=== PATIENT | male | born 1980 | race Two or more races ===

== ENCOUNTER 2016-09-16 10:56 | Emergency (ER) | payer OTHER ==
[~2016-09-16] VITALS: Ht 167.6 cm; Wt 89.0 kg
[2016-09-16 11:04] VITALS: BP 133/98; PULSE 49; RESP 16; TEMP 98.1; O2SAT 98
[2016-09-16] MEDS ORDERED: SODIUM CHLOR 0.9% 1000 ML INJ 1,000 ML IV SCH (11:33)
[2016-09-16] MEDS ORDERED: RANI150T PO (11:41)
[2016-09-16] MEDS ORDERED: ONDANSETRON HCL 4 MG/2 ML VIAL IVP ONE (11:45)
[2016-09-16] MEDS ORDERED: SODIUM CHLORIDE 0.9% FLUSH 10 ML FLUSH IV FLUSH PRN (11:45)
[2016-09-16] MEDS ORDERED: MORPHINE SULFATE 4 MG/ML INJ IV PUSH ONE (11:45)
[2016-09-16 11:55] LABS: AUTOMATED NEUTROPHIL # 9.4 TH/MM3 (1.8-7.7); BASOPHIL # 0.1 TH/MM3 (0-0.2); BASOPHIL % 0.5 % (0.0-2.0); EOSINOPHIL % 0.2 % (0.0-4.0); HEMATOCRIT 46.1 % (39.0-51.0); HEMO FLAGS DIFF FINAL; LYMPH % 10.1 % (9.0-44.0); LYMPHOCYTE # 1.1 TH/MM3 (1.0-4.8); MEAN CELL VOLUME 82.6 FL (80.0-100.0); MEAN CORPUSCULAR HGB CONC 32.7 % (32.0-36.0); MONO % 5.3 % (0.0-8.0); NEUT % 83.9 % (16.0-70.0); PLATELET COUNT 139 TH/MM3 (150-450); RED BLOOD COUNT 5.58 MIL/MM3 (4.50-5.90); WHITE BLOOD COUNT 11.2 TH/MM3 (4.0-11.0)
[2016-09-16 12:00] VITALS: RESP 16; O2SAT 98
[2016-09-16 12:04] LABS: CHLORIDE 105 MEQ/L (98-107); POTASSIUM 4.1 MEQ/L (3.5-5.1); SODIUM (NA) 141 MEQ/L (136-145)
--- NOTE | 2016-09-16 12:07 | PD ---
HPI Chief Complaint: Abdominal Pain Time Seen by Provider: 11:29 Travel History International Travel<30 days: No Contact w/Intl Traveler<30days: No Traveled to known affect area: No History of Present Illness HPI 35-year-old male presents with right lower quadrant abdominal pain, chills and nonbloody emesis over the past day. He states he went to an urgent care but after waiting too long he elected to come here before evaluation there. Quality is crampy. Severity is moderate. He denies migration the pain. He states that he has been having a sore throat over the past couple weeks so he is been trying [id number] Zantac and that helped with those symptoms but it did not help with two-day symptoms. He denies other concurrent complaints. PFSH Past Medical History Hx Anticoagulant Therapy: No Diabetes: No GERD: Yes Immunizations Current: Yes Influenza Vaccination: Yes Past Surgical History Surgical History: No Previous Surgery Social History Alcohol Use: Yes (RARE) Tobacco Use: Yes (1/2 PPD) Substance Use: No Allergies-Medications (Allergen,Severity, Reaction): Coded Allergies: No Known Allergies (Unverified , 09/16/16) Reported Meds & Prescriptions Reported Meds & Active Scripts Active Tramadol (Tramadol HCl) 50 Mg Tab 50 Mg PO Q8H PRN Diflucan (Fluconazole) 200 Mg Tab 200 Mg PO DAILY Reported Ranitidine (Ranitidine HCl) 150 Mg Tab 150 Mg PO BID Review of Systems Except as stated in HPI: all other systems reviewed are Neg Physical Exam Narrative GENERAL: Well-nourished, well-developed patient. SKIN: Warm and dry. HEAD: Normocephalic and atraumatic. EYES: No injection or drainage. ENT: No nasal drainage noted. NECK: Supple, trachea midline. CARDIOVASCULAR: Regular rate and rhythm RESPIRATORY: Breath sounds equal bilaterally. No accessory muscle use. GASTROINTESTINAL: Abdomen soft, ttp in rlq, nondistended. EXTREMITIES: No edema. NEUROLOGICAL: Awake and alert. Motor and sensory grossly within normal limits. Normal speech. Data Data Last Documented VS Vital Signs Date Time Temp Pulse Resp B/P Pulse Ox O2 Delivery O2 Flow Rate FiO2 09/16/16 12:00 16 98 Room Air 09/16/16 11:04 98.1 49 133/98 Orders Complete Blood Count With Diff (09/16/16 11:33) Comprehensive Metabolic Panel (09/16/16 11:33) Lipase (09/16/16 11:33) Urinalysis - C+S If Indicated (09/16/16 11:33) Ct Abd/Pel W Iv Contrast(Rout) (09/16/16 11:33) Iv Access Insert/Monitor (09/16/16 11:33) Ecg Monitoring (09/16/16 11:33) Oximetry (09/16/16 11:33) Morphine Inj (Morphine Inj) (09/16/16 11:45) Ondansetron Inj (Zofran Inj) (09/16/16 11:45) Sodium Chlor 0.9% 1000 Ml Inj (Ns 1000 M (09/16/16 11:33) Sodium Chloride 0.9% Flush (Ns Flush) (09/16/16 11:45) Urine Culture (09/16/16 11:55) Iohexol 350 Inj (Omnipaque 350 Inj) (09/16/16 12:34) Labs Laboratory Tests Test 09/16/16 09/16/16 11:45 11:55 White Blood Count 11.2 TH/MM3 Red Blood Count 5.58 MIL/MM3 Hemoglobin 15.1 GM/DL Hematocrit 46.1 % Mean Corpuscular Volume 82.6 FL Mean Corpuscular Hemoglobin 27.0 PG Mean Corpuscular Hemoglobin 32.7 % Concent Red Cell Distribution Width 12.0 % Platelet Count 139 TH/MM3 Mean Platelet Volume 9.3 FL Neutrophils (%) (Auto) 83.9 % Lymphocytes (%) (Auto) 10.1 % Monocytes (%) (Auto) 5.3 % Eosinophils (%) (Auto) 0.2 % Basophils (%) (Auto) 0.5 % Neutrophils # (Auto) 9.4 TH/MM3 Lymphocytes # (Auto) 1.1 TH/MM3 Monocytes # (Auto) 0.6 TH/MM3 Eosinophils # (Auto) 0.0 TH/MM3 Basophils # (Auto) 0.1 TH/MM3 CBC Comment DIFF FINAL Differential Comment Sodium Level 141 MEQ/L Potassium Level 4.1 MEQ/L Chloride Level 105 MEQ/L Carbon Dioxide Level 27.8 MEQ/L Anion Gap 8 MEQ/L Blood Urea Nitrogen 11 MG/DL Creatinine 1.10 MG/DL Estimat Glomerular Filtration 76 ML/MIN Rate Random Glucose 196 MG/DL Calcium Level 8.7 MG/DL Total Bilirubin 0.6 MG/DL Aspartate Amino Transf 44 U/L (AST/SGOT) Alanine Aminotransferase 100 U/L (ALT/SGPT) Alkaline Phosphatase 78 U/L Total Protein 7.9 GM/DL Albumin 4.2 GM/DL Lipase 272 U/L Urine Collection Type CLEAN CATCH Urine Color YELLOW Urine Turbidity CLEAR Urine pH 6.0 Urine Specific Rumsey 1.018 Urine Protein TRACE mg/dL Urine Glucose (UA) NEG mg/dL Urine Ketones NEG mg/dL Urine Occult Blood LARGE Urine Nitrite NEG Urine Bilirubin NEG Urine Leukocyte Esterase NEG Urine RBC INNUM /hpf Urine WBC 20-24 /hpf Urine Squamous Epithelial 0-5 /hpf Cells Urine Yeast (Budding) MANY Microscopic Urinalysis Comment CULTURE INDICATED Urine Collection Time 11:55 [facility] Medical Decision Making Medical Screen Exam Complete: Yes Emergency Medical Condition: Yes Medical Record Reviewed: Yes (past history confirmed) Interpretation(s) CBC & BMP Diagram 09/16/16 11:45 Last 24 hours Impressions Abdomen/Pelvis CT 09/16/16 1133 Signed Impressions: Service Date/Time: Friday, September 16, 2016 12:23 - CONCLUSION: 1. Acute obstructive uropathy is noted involving the right distal ureter several centimeters proximal to the right ureterovesical junction secondary to a 4 mm calcified calculus resulting in mild ureteropelvocaliectasis on the right. 2. Uncomplicated colonic diverticulosis. 3. Mild fatty infiltration of the liver. Ck Johnson MD ua with yeast Differential Diagnosis Appendicitis, gastroenteritis, stone Narrative Course Will check blood work, urinalysis, CT scan and dose with Zofran and morphine and reevaluate ed workup with glucose of 196, urine with yeast, CT with stone. We'll discuss with urology, patient wanting to leave Patient denies any new complaints and states that they are feeling better. Patient happy with care, all questions answered. Patient knows that follow up is incumbent on them and to return to the emergency room immediately if new or worsening symptoms develop. Patient given strict return precautions, vitals reviewed and are normal, agrees to further workup as an outpatient. Given interaction of Lortab and Percocet with Diflucan Will send home on tramadol, no emesis here Physician Communication Physician Communication dr ruff states to place on diflucan for 5 days and can follow outpatient Diagnosis Primary Impression: Kidney stone Additional Impressions: Elevated glucose Maribell cystitis Referrals: Primary Care Physician 2 days Urologist call for appointment this week Patient Instructions: General Instructions Additional Instructions: return as needed, limit sugar in diet Med/Other Pt SpecificInfo: Prescription(s) given Scripts Tramadol 50 Mg Tab50 Mg PO Q8H PRN (PAIN) #15 TAB Ref 0 Prov:Gemma Bolivar MD 09/16/16 Fluconazole (Diflucan)200 Mg Caf336 Mg PO DAILY #5 TAB Ref 0 Prov:Gemma Bolivar MD 09/16/16 Disposition: 01 DISCHARGE HOME Condition: Stable Gemma Bolivar MD Sep 16, 2016 12:07
[2016-09-16 12:08] LABS: ANION GAP 8 MEQ/L (5-15); BICARBONATE 27.8 MEQ/L (21.0-32.0); BLOOD UREA NITROGEN 11 MG/DL (7-18)
[2016-09-16 12:10] LABS: ALT (GPT) 100 U/L (12-78)
[2016-09-16 12:11] LABS: BLOOD, URINE LARGE (NEG); GLUCOSE,URINE NEG (NEG); KETONE, URINE NEG (NEG); NITRITE,URINE NEG (NEG)
[2016-09-16 12:11] LABS: AST (GOT) 44 U/L (15-37); GLOMERULAR FILTRATION RATE 76 ML/MIN (>89)
[2016-09-16 12:12] LABS: TOTAL BILIRUBIN ADULT 0.6 MG/DL (0.2-1.0)
[2016-09-16 12:14] LABS: ALKALINE PHOSPHATASE 78 U/L (45-117)
[2016-09-16 12:20] LABS: METHOD OF COLLECTION CLEAN CATCH; URINE COLOR YELLOW (YELLW/STRAW)
[2016-09-16 12:21] LABS: RBC, URINE INNUM /hpf (0-3); SQUAMOUS EPITHELIAL CELL URINE 0-5 /hpf (0-5)
[2016-09-16 12:22] LABS: COMMENT (UR) CULTURE INDICATED; CULTURE IF INDICATED CULTURE INDICATED
[2016-09-16] MEDS ORDERED: IOHEXOL 350 MG/ML 10 ML VIAL (for RAD DIAG) IV ONE (12:34)
[2016-09-16 13:00] VITALS: BP 133/64; PULSE 52; RESP 16; O2SAT 98
--- NOTE | 2016-09-16 13:01 | RADHPO ---
EXAM DATE/TIME: 09/16/2016 12:23 [facility] COMPARISON: No previous studies available for comparison. INDICATIONS : Non specific abdominal pain with nausea and vomiting. IV CONTRAST: 95 cc Omnipaque 350 (iohexol) IV ORAL CONTRAST: No oral contrast ingested. RADIATION DOSE: 14.44 CTDIvol (mGy) MEDICAL HISTORY : Gastroesophageal reflux disease. SURGICAL HISTORY : None. ENCOUNTER: Initial ACUITY: 1 day PAIN SCALE: 3/10 LOCATION: abdomen TECHNIQUE: Volumetric scanning of the abdomen and pelvis was performed. Using automated exposure control and ad justment of the mA and/or kV according to patient size, radiation dose was kept as low as reasonably achievable to obtain optimal diagnostic quality images. FINDINGS: LOWER LUNGS: The visualized lower lungs are clear. LIVER: Mild fatty infiltration of the liver is noted. There is no dilation of the biliary tree. No calcifie d gallstones. SPLEEN: Normal size without lesion. PANCREAS: Within normal limits. KIDNEYS: Acute obstructive uropathy is noted involving the right distal ureter several centimeters proximal to the right ureterovesical junction secondary to a 4 mm calcified calculus resulting in mild ureterope lvocaliectasis on the right. The left kidney is unremarkable. ADRENAL GLANDS: Within normal limits. VASCULAR: There is no aortic aneurysm. BOWEL/MESENTERY: Uncomplicated colonic diverticulosis is noted. ABDOMINAL WALL: Within normal limits. RETROPERITONEUM: There is no lymphadenopathy. BLADDER: No wall thickening or mass. REPRODUCTIVE: Within normal limits. INGUINAL: There is no lymphadenopathy or hernia. MUSCULOSKELETAL: Within normal limits for patient age. CONCLUSION: 1. Acute obstructive uropathy is noted involving the right distal ureter several centimeters proximal to the right ureterovesical junction secondary to a 4 mm calcified calculus resulting in mild ureter opelvocaliectasis on the right. 2. Uncomplicated colonic diverticulosis. 3. Mild fatty infiltration of the liver. Ck Johnson MD on September 16, 2016 at 12:53 Board Certified Radiologist. This report was verified electronically.
[2016-09-16] MEDS ORDERED: DIFL200T PO (13:19)
[2016-09-16] MEDS ORDERED: TRAM50TA PO (13:19)
== END 2016-09-16 13:44 | disposition home or self-care (01) ==
LOC: PHED 10:56
DX: N20.0 Calculus of kidney (principal); B37.41 Candidal cystitis and urethritis; R73.9 Hyperglycemia, unspecified
CPT/HCPCS: 74177; 80053; 81001; 83690; 85025; 87086; 96361; 96374; 96375; 99285; J2270; J2405; J7030; Q9967